=== PATIENT | female | born 1990 | race Hispanic/Latino ===

== ENCOUNTER 2021-09-01 13:24 | Emergency (ER) | payer BC, MEDICAID ==
--- NOTE | 2021-09-01 13:32 | Event Note ---
ED Screening Note ED Screening Note: 31-year-old 10 weeks presenting with abdominal cramping bleeding. Symptoms started yesterday worse today. 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 In the setting of a significantly high volume and record number of patients presenting to the emergency department and the fact that we have a limited space to see patients we have implemented the provider in triage protocol this allows an expedited initial exam of patients that might otherwise have left without being seen or who would wait longer than usual to be seen by provider. I interviewed the patient and performed a limited physical exam. This patient is a pulled from the waiting room to triage room for an initial assessment of adrenal studies and then returned to the waiting room pending results of the studies. The ultimate final evaluation and disposition may be performed by an other provider depending on room and provider availability.
--- NOTE | 2021-09-01 15:42 | Ultrasound Report ---
US OB <= 14 weeks fetus INDICATION: pelvic pain, vag bleed, 10 weeks. TECHNIQUE: COMPARISON: None available. FINDINGS: A gestational sac is present but no pole is seen. Sac size is 2.37 cm which corresponds to 7 we eks and 3 days. There is no free fluid. Both ovaries appear normal. IMPRESSION: 1. Empty sac suggesting demise. Follow-up ultrasound in one to 2 weeks can be performed for con firmation. Signer Name: Chinedu Rincon MD Signed: 09/01/2021 3:38 PM Workstation Name: [id number]
[2021-09-01] MEDS ORDERED: HYDROcodone/ACETAMINOPHEN 5-325 MG TAB PO ONE (16:55)
--- NOTE | 2021-09-01 17:51 | Emergency Department Report ---
ED HPI - General Chief complaint: Vaginal Bleeding Stated complaint: 10 WEEKS/CRAMPING BLEEDING Time Seen by Provider: 09/01/21 16:52 Source: patient Mode of arrival: Ambulatory Limitations: No Limitations - History of Present Illness Initial comments: 31-year-old white female with no past medical history presents to the emergency department for evaluation of vaginal bleeding. Patient states that she is G3, P2 at about 10 weeks gestation. She states that yesterday she started to have some vaginal spotting and when she woke up this morning the bleeding had turned heavy and accompanied with severe abdominal cramping. She denies fever, d ysuria, nausea, and vomiting. She states that her primary BAR WAITER/WAITRESS is just for you and [facility] whom she contacted prior to arrival and was advised to follow-up in the ER for further evaluation and management. She states that her last menstrual period was June 14. MD Complaint: abdominal pain, vaginal bleeding -: Gradual, Last night Location: abdomen Radiation: LLQ, RLQ Severity: severe Severity scale (0 -10): 8 Quality: cramping, aching Consistency: intermittent Associated symptoms: vaginal bleeding, abdominal pain. denies: nausea/vomiting, vaginal discharge, dysuria, headache, vision changes, malaise, dysparuenia, rash, seizure, shortness of breath, syncope, weakness Vaginal bleeding: heavy, clots :: Yes Number of weeks : 10 OB History - Current : no complications OB History - Previous Pregnancies: no complications Last menstrual period: 06/14/21 Pre-arely care: followed by OB (Just for [facility] in [place]) - Related Data : 3 Para: 2 Home Medications Medication Instructions Recorded Confirmed Last Taken Vit-Fe Fumar-FA [ 1 tab PO QDAY 10/08/16 10/08/16 10/08/16 Vitamin] Previous Rx's Medication Instructions Recorded Last Taken Type HYDROcodone/APAP 5-325 [Bright[place] 1 each PO Q6HR PRN #20 tablet 10/09/16 Unknown Rx 5/325] Ibuprofen [Motrin] 600 mg PO Q6H PRN #40 tablet 10/09/16 Unknown Rx Allergies Allergy/AdvReac Type Severity Reaction Status Date / Time No Known Allergies Allergy Verified 10/09/16 01:03 ED Review of Systems ROS: Stated complaint: 10 WEEKS/CRAMPING BLEEDING Other details as noted in HPI Comment: All other systems reviewed and negative Constitutional: denies: chills, fever, malaise, weakness Eyes: denies: eye pain, vision change ENT: denies: congestion Respiratory: denies: shortness of breath Cardiovascular: denies: chest pain, palpitations Gastrointestinal: abdominal pain. denies: nausea, vomiting, diarrhea, cele temesis, melena Genitourinary: denies: urgency, dysuria, frequency, hematuria, discharge Musculoskeletal: denies: back pain Neurological: denies: headache, weakness ED Past Medical Hx - Past Medical History Hx Hypertension: No Hx Congestive Heart Failure: No Hx Diabetes: No Hx Deep Vein Thrombosis: No Hx Renal Disease: No Hx Sickle Cell Disease: No Hx Seizures: No Hx Asthma: No Hx COPD: No Hx HIV: No - Surgical History Past Surgical History?: No - Social History Smoking Status: Current Every Day Smoker Substance Use Type: Alcohol - Medications Home Medications: Home Medications Medication Instructions Recorded Confirmed Last Taken Type Vit-Fe Fumar-FA [ 1 tab PO QDAY 10/08/16 10/08/16 10/08/16 History Vitamin] HYDROcodone/APAP 5-325 [[place] 1 each PO Q6HR PRN #20 tablet 10/09/16 Unknown Rx 5/325] Ibuprofen [Motrin] 600 mg PO Q6H PRN #40 tablet 10/09/16 Unknown Rx ED Physical Exam - General Limitations: No Limitations General appearance: alert, in no apparent distress - Head Head exam: Present: atraumatic, normocephalic - Eye Eye exam: Present: normal appearance. Absent: conjunctival injection, periorbital swelling, periorbital tenderness - Neck Neck exam: Present: normal inspection. Absent: tenderness, lymphadenopathy - Respiratory Respiratory exam: Present: normal lung sounds bilaterally. Absent: respiratory distress, wheezes, rales, rhonchi, chest wall tenderness - Cardiovascular Cardiovascular Exam: Present: normal heart sounds - GI/Abdominal GI/Abdominal exam: Present: soft, normal bowel sounds. Absent: distended, tenderness, guarding, rebound, rigid - Extremities Exam Extremities exam: Present: normal inspection, normal capillary refill. Absent: pedal edema, joint swelling, calf tenderness - Back Exam Back exam: Present: normal inspection. Absent: CVA tenderness (R), CVA tenderness (L) - Neurological Exam Neurological exam: Present: alert, oriented X3, CN II-XII intact, normal gait - Psychiatric Psychiatric exam: Present: normal affect, normal mood - Skin Skin exam: Present: warm, dry, intact, normal color ED Course Vital Signs 09/01/21 18:32 Temperature 98.6 F Pulse Rate 76 Respiratory 16 Rate Blood Pressure 141/83 [Left] O2 Sat by Pulse 100 Oximetry ED Medical Decision Making - Lab Data Result diagrams: 09/01/21 17:29 09/01/21 17:29 - Radiology Data Radiology results: report reviewed, image reviewed ultrasound: FINDINGS: A gestational sac is present but no pole is seen. Sac size is 2.37 cm which corresponds to 7 weeks and 3 days. There is no free fluid. Both ovaries appear normal. IMPRESSION: 1. Empty sac suggesting demise. Follow-up ultrasound in one to 2 weeks can be performed for confirmation. - Medical Decision Making 31-year-old white female with no past medical history presents to the emergency department for evaluation of vaginal bleeding. Patient states that she is G3, P2 at about 10 weeks gestation. She states that yesterday she started to have some vaginal spotting and when she woke up this morning the bleeding had turned heavy and accompanied with severe abdominal cramping. She denies fever, dysuria, nausea, and vomiting. She states that her primary BAR WAITER/WAITRESS is just for you and [facility] whom she contacted prior to arrival and was advised to follow-up in the ER for further evaluation and management. She states that her last menstrual period was June 14. Patient came today stating that she needed to go because she has been waiting here too long. Patient was advised the results of ultrasound but states that she will just follow-up with her BAR WAITER/WAITRESS. No other results were available. Patient states that she will just follow-up with BAR WAITER/WAITRESS as planned and will return if she deems necessary. Critical care attestation.: If time is entered above; I have spent that time in minutes in the direct care of this critically ill patient, excluding procedure time. ED Disposition Clinical Impression: Left against medical advice Disposition: LEFT AGAINST MEDICAL ADVICE Is pt being admited?: No Condition: Stable Referrals: PRIMARY CARE, [Primary Care Provider] - 3-5 Days
[2021-09-01 17:56] LABS: Basophils # (Auto) 0.1 K/mm3 (0.0-0.1); Basophils % (Auto) 0.6 % (0.0-1.8); Eosinophils # (Auto) 0.1 K/mm3 (0.0-0.4); Eosinophils % (Auto) 1.1 % (0.0-4.3); Hematocrit 42.8 % (30.3-42.9); Hemoglobin 15.2 gm/dl (10.1-14.3); Lymphocytes # (Auto) 1.8 K/mm3 (1.2-5.4); Lymphocytes % (Auto) 17.2 % (13.4-35.0); Mean Corpuscular HGB Conc 36 % (30-34); Mean Corpuscular Volume 102 fl (79-97); Monocytes # (Auto) 0.8 K/mm3 (0.0-0.8); Monocytes % (Auto) 7.5 % (0.0-7.3); Platelet Count 181 K/mm3 (140-440); Red Blood Count 4.18 M/mm3 (3.65-5.03); Red Cell Distribution Width 12.5 % (13.2-15.2)
[2021-09-01 18:29] LABS: Alanine Aminotransferase 72 units/L (7-56); Albumin 4.8 g/dL (3.9-5); Blood Urea Nitrogen 5 mg/dL (7-17); Hemolysis Index 26
[2021-09-01 18:32] VITALS: BP 141/83
[2021-09-01 18:46] LABS: BUN/Creatinine Ratio 10
== END 2021-09-02 19:05 | disposition left against medical advice (07) ==
LOC: ED 13:24
DX: O46.91 Antepartum hemorrhage, unspecified, first trimester (principal); Z3A.10 10 weeks gestation of pregnancy; F17.200 Nicotine dependence, unspecified, uncomplicated; F10.20 Alcohol dependence, uncomplicated
CPT/HCPCS: 36415; 76801; 80053; 84702; 85025; 99283; 99284